=== PATIENT | female | born 1995 | race Caucasian/White ===

== ENCOUNTER 2024-02-17 03:58 | Emergency (ER) | payer SELFPAY ==
[~2024-02-17] VITALS: Ht 175.3 cm; Wt 70.3 kg
[2024-02-17] MEDS ORDERED: LIDOCAINE HCL 1% 20 ML VIAL ONE (05:33)
[2024-02-17] MEDS ORDERED: CLINDAMYCIN HCL 150 MG CAPSULE ONE (05:33)
[2024-02-17] MEDS: LIDOCAINE HCL 1% 20 ML VIAL IJ ONE (06:11)
[2024-02-17] MEDS: CLINDAMYCIN HCL 150 MG CAPSULE PO ONE (06:11)
[2024-02-17] MEDS ORDERED: CLIN-118 PO (06:22)
[2024-02-17 06:26] VITALS: BP 100/69; TEMP 98.6; O2SAT 100
== END 2024-02-17 06:26 | disposition home or self-care (01) ==
LOC: ER 04:01
DX: L73.2 Hidradenitis suppurativa (principal); L02.411 Cutaneous abscess of right axilla; Z90.49 Acquired absence of other specified parts of digestive tract; Z79.899 Other long term (current) drug therapy
CPT/HCPCS: 99283; J3490; A4606; A4663